=== PATIENT | female | born 1995 | race Caucasian/White ===

== ENCOUNTER 2024-02-02 13:01 | Emergency (ER) | payer SELFPAY ==
[~2024-02-02] VITALS: Ht 162.6 cm; Wt 98.4 kg
[2024-02-02 13:08] VITALS: BP 126/69; PULSE 83; RESP 16; TEMP 98.7; O2SAT 98
[2024-02-02] MEDS ORDERED: NAPR-1704 PO (15:14)
[2024-02-02] MEDS: KETOROLAC 30 MG/ML VIAL IM ONE (15:24)
[2024-02-02 15:36] VITALS: BP 126/59; PULSE 88; RESP 19; TEMP 98.3; O2SAT 98
== END 2024-02-02 15:36 | disposition home or self-care (01) ==
LOC: MED 13:01
DX: R51.9 Headache, unspecified (principal); Z79.899 Other long term (current) drug therapy
CPT/HCPCS: 70450; 81002; 81025; 96372; 99285; J1885